=== PATIENT | male | born 1995 | race Caucasian/White ===

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

== ENCOUNTER 2018-08-26 20:28 | Emergency (ER) | payer OTHER ==
--- NOTE | 2018-08-26 20:45 | UC ---
Hand/Wrist HPI - HPI Summary HPI Summary: patient was playing flag football injured the right pinky finger. pain into the knuckle - History Of Current Complaint Stated Complaint: RIGHT HAND INJURY Time Seen by Provider: 08/26/18 20:33 Hx Obtained From: Patient Onset/Duration: Sudden Onset, Lasting Hours Severity Initially: Moderate Severity Currently: Moderate Character Of Pain: Aching, Throbbing Aggravating Factor(s): Movement Alleviating Factor(s): Rest, Ice - Allergies/Home Medications Allergies/Adverse Reactions: Allergies Allergy/AdvReac Type Severity Reaction Status Date / Time No Known Allergies Allergy Verified 07/31/16 20:42 PMH/Surg Hx/FS Hx/Imm Hx Previously Healthy: Yes - Surgical History Surgical History: None - Family History Known Family History: Positive: Diabetes Negative: Cardiac Disease, Hypertension - Social History Alcohol Use: None Substance Use Type: None Smoking Status (MU): Never Smoked Tobacco Have You Smoked in the Last Year: No Review of Systems All Other Systems Reviewed And Are Negative: Yes Musculoskeletal: Positive: Arthralgia, Decreased ROM, Myalgia Is Patient Immunocompromised?: No Physical Exam Triage Information Reviewed: Yes Appearance: Well-Appearing, Well-Nourished, Pain Distress Eye Exam: Normal ENT Exam: Normal Dental Exam: Normal Neck exam: Normal Respiratory Exam: Normal Cardiovascular Exam: Normal Abdominal Exam: Normal Bowel Sounds: Positive: Present Musculoskeletal: Positive: Strength Limited @ - 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 - Differential Dx/Diagnosis Differential Diagnosis/HQI/PQRI: Contusion, Dislocation, Fracture, Sprain, Strain Provider Diagnosis: Closed fracture of tuft of distal phalanx of finger Discharge - Sign-Out/Discharge Documenting (check all that apply): Patient Departure All imaging exams completed and their final reports reviewed: No - Discharge Plan Condition: Stable Disposition: HOME Patient Education Materials: Finger Fracture (ED) Referrals: No Primary Care Phys,NOPCP [Primary Care Provider] - Additional Instructions: 1. wear the splint for support. 2. ice and ibuprofen for comfort 3. Follow up with orthopedic if not improving in the next 2 weeks - Billing Disposition and Condition Condition: STABLE Disposition: Home
[2018-08-26 21:05] VITALS: BP 124/72
--- NOTE | 2018-08-27 12:47 | ED ---
Progress - Progress Note Progress Note: final xray report reviewed and fracture identified on the wet read already as well as in the final read. Course/Dx - Diagnoses Provider Diagnoses: Closed fracture of tuft of distal phalanx of finger Discharge - Sign-Out/Discharge Documenting (check all that apply): Patient Departure All imaging exams completed and their final reports reviewed: Yes - Discharge Plan Condition: Stable Disposition: HOME Patient Education Materials: Finger Fracture (ED) Referrals: No Primary Care Phys,NOPCP [Primary Care Provider] - Additional Instructions: 1. wear the splint for support. 2. ice and ibuprofen for comfort 3. Follow up with orthopedic if not improving in the next 2 weeks - Billing Disposition and Condition Condition: STABLE Disposition: Home
== END 2018-08-26 21:08 | disposition home or self-care (01) ==
LOC: UCCORT 20:28
DX: S69.91XA Unspecified injury of right wrist, hand and finger(s), initial encounter (principal); X58.XXXA Exposure to other specified factors, initial encounter; Y93.62 Activity, american flag or touch football; Y92.9 Unspecified place or not applicable
CPT/HCPCS: 99212; G0463

== ENCOUNTER 2018-12-10 15:54 | Emergency (ER) | payer OTHER ==
[2018-12-10] MEDS ORDERED: Ibuprofen ADULT LIQ* 600 MG/30 ML UDC PO ONE (16:23)
--- NOTE | 2018-12-10 16:23 | UC ---
UC General HPI - HPI Summary HPI Summary: 2pm today, pt noted his calf muscles were aching. 3pm he felt fatigued as well then shortly after chills. + prior hx mono. - History of Current Complaint Chief Complaint: UCGeneralIllness Stated Complaint: FEVER,LIGHT HEADED Time Seen by Provider: 12/10/18 15:57 Hx Obtained From: Patient Onset/Duration: Gradual Onset Timing: Constant Pain Intensity: 2 Associated Signs & Symptoms: Negative: Abdominal Pain, Cough, Diarrhea, Dysuria , Fever, Headache, Nausea, SOB, Vomiting - Allergy/Home Medications Allergies/Adverse Reactions: Allergies Allergy/AdvReac Type Severity Reaction Status Date / Time No Known Allergies Allergy Verified 12/10/18 16:06 Home Medications: Home Medications NK [No Home Medications Reported] 12/10/18 [History Confirmed 12/10/18] PMH/Surg Hx/FS Hx/Imm Hx Previously Healthy: Yes - Surgical History Surgical History: None - Family History Known Family History: Positive: Diabetes Negative: Cardiac Disease, Hypertension - Social History Alcohol Use: Weekly Alcohol Amount: once a week Substance Use Type: None Smoking Status (MU): Never Smoked Tobacco Have You Smoked in the Last Year: No Review of Systems All Other Systems Reviewed And Are Negative: Yes Constitutional: Positive: Chills, Fatigue. Negative: Fever Skin: Negative: Rash Eyes: Negative: Eye Redness ENT: Negative: Sore Throat, Ear Ache, Sinus Congestion Respiratory: Negative: Shortness Of Breath, Cough Cardiovascular: Negative: Palpitations, Chest Pain Gastrointestinal: Negative: Abdominal Pain, Vomiting, Diarrhea, Nausea Genitourinary: Negative: Dysuria Musculoskeletal: Positive: Myalgia - lower legs. Negative: Arthralgia Neurological: Negative: Headache Physical Exam Triage Information Reviewed: Yes Appearance: Well-Appearing Vital Signs: Initial Vital Signs Temp 99.7 F 12/10/18 15:59 Pulse 82 12/10/18 15:59 Resp 15 12/10/18 15:59 BP 137/72 12/10/18 15:59 Pulse Ox 100 12/10/18 15:59 Vital Signs Reviewed: Yes Eyes: Positive: Conjunctiva Clear ENT: Positive: Pharyngeal erythema, TMs normal, Tonsillar swelling, Tonsillar exudate, Uvula midline, Other - malodor to breath.. Negative: Nasal congestion , Nasal drainage, Trismus, Muffled voice, Hoarse voice Neck: Positive: Supple, Nontender, Enlarged Nodes @ - peritonsilar Respiratory: Positive: Lungs clear, Normal breath sounds, No respiratory distress Cardiovascular: Positive: RRR, No Murmur Abdomen Description: Positive: Nontender, No Organomegaly, Soft Bowel Sounds: Positive: Present Musculoskeletal: Positive: ROM Intact Neurological: Positive: Alert Psychological: Positive: Age Appropriate Behavior Skin Exam: Normal Skin: Negative: Rashes Diagnostics - Laboratory Lab Results: rapid strep=negative. u/a=1+ protein. no blood, leukocytes, nitrites. Course/Dx - Course Course Of Treatment: Recheck and pt napping post motrin. Second recheck and pt feeling better. He is taking po fluids. Case d/w DR Ansari because pt's subjective symptoms seemed out of proportion to pt findings. He examined pt's throat and offered antibiotic for presumptive bacterial tonsillitis. Pt offered a TC as well; however, pt declined both. Pt just wants something like what he had here(motrin) to make him comfortable. - Differential Dx - Multi-Symptom Differential Diagnoses: Other - non toxic. u/a=1+ protein, otherwise unremarkable. rapid strep=neg. pt declined antibiotic tx for his tosillitis and a throat culture. he was advised of need for close f/u for a recheck that should include a urine dip to check for protein. - Diagnoses Provider Diagnosis: Tonsillitis with exudate, Proteinuria Discharge - Sign-Out/Discharge Documenting (check all that apply): Patient Departure All imaging exams completed and their final reports reviewed: No Studies - Discharge Plan Condition: Stable Disposition: HOME Patient Education Materials: Tonsillitis (ED) [facility] - 3 Days Additional Instructions: FOLLOW UP WITH THE [facility] FOR A RECHECK. HAVE THEM RECHECK YOUR URINE FOR PROTEIN. GO TO THE ER FOR ANY WORSENING. - Billing Disposition and Condition Condition: STABLE Disposition: Home
[2018-12-10 17:41] VITALS: BP 119/55
== END 2018-12-10 17:44 | disposition home or self-care (01) ==
LOC: UCCORT 15:54
DX: J03.90 Acute tonsillitis, unspecified (principal); R80.9 Proteinuria, unspecified
CPT/HCPCS: 81003; 87651; 99212; A9270-GY; G0463